=== PATIENT | female | born 1955 | race Caucasian/White ===

== ENCOUNTER 2019-02-14 06:45 | Inpatient (IN) ==
[2019-02-14] MEDS ORDERED: Clindamycin 900 MG/50 ML 900 MG/50 ML IV.SOLN IVPB ONE (07:21)
[2019-02-14] MEDS ORDERED: Ringers Solution, Lactated 1,000 ML IVC SCH (07:30)
[2019-02-14] MEDS ORDERED: Lidocaine -MPF 2% 2 ML VIAL ONE ×2 (07:38→07:42)
[2019-02-14] MEDS ORDERED: *HR* Midazolam HCl 2 MG/2 ML VIAL ONE (07:42)
[2019-02-14] MEDS ORDERED: *HR* FentaNYL (PF) 100 MCG/2 ML VIAL ONE (07:42)
[2019-02-14] MEDS ORDERED: *HR* Rocuronium Bromide 50 MG/5 ML VIAL ONE ×3 (07:42→10:18)
[2019-02-14] MEDS ORDERED: *HR* Propofol 200 MG/20 ML VIAL IVP ONE (07:42)
[2019-02-14] MEDS ORDERED: *HR* Belladonna Alkaloids/Opium 30 MG RECTAL SUPPOSITORY RC ONE (07:54)
[2019-02-14] MEDS ORDERED: *HR* Morphine Sulfate/PF 10 MG/10 ML AMPUL ONE (08:02)
[2019-02-14] MEDS ORDERED: Bupivacaine-MPF 0.25% 10 ML VIAL ONE (08:02)
[2019-02-14] MEDS ORDERED: EPHEDrine 50 MG/ML VIAL ONE (08:54)
[2019-02-14] MEDS ORDERED: Acetaminophen IV 1,000 MG/100 ML INFUS..BTL ONE (09:04)
[2019-02-14] MEDS ORDERED: Dexamethasone 4 MG/ML VIAL ONE (10:18)
[2019-02-14] MEDS ORDERED: Ondansetron 4 MG/2 ML VIAL ONE (10:18)
[2019-02-14] MEDS ORDERED: Naloxone 0.4 MG/ML INJ IVP PRN (12:13)
[2019-02-14] MEDS ORDERED: Sennosides 8.6 MG TABLET PO PRN (12:13)
[2019-02-14] MEDS: *HR* Acetaminophen w/Cod 300-30 mg 1 TAB TABLET PO PRN (14:18)
[2019-02-14] MEDS ORDERED: Dextrose Gel 15 GM/37.5 ML TUBE PO PRN ×2 (14:22)
[2019-02-14] MEDS ORDERED: *HR* Dextrose 50 % in Water (Syg) 50 ML SYRINGE IVP PRN (14:22)
[2019-02-14] MEDS ORDERED: D5% in Water 1,000 ML IVC PRN (14:22)
[2019-02-14] MEDS: Insulin LISPRO 300 UNITS/3 ML VIAL SQ SCH (16:43)
[2019-02-14] MEDS: *HR* Heparin 5,000 UNIT/ML VIAL SQ SCH (18:13)
[2019-02-14] MEDS: Ondansetron 4 MG/2 ML VIAL IVP PRN (18:18)
[2019-02-15 02:13] LABS: White Blood Count 10.1 K/mcL (4.3-11.1)
[2019-02-15 02:14] LABS: Basophils % 0.1 %; Eosinophils % 0.1 %; Hematocrit 32.9 % (35.3-44.9); Hemoglobin 11.3 g/dL (11.5-15.4); Immature Granulocytes % 4.4 % (0-4); Lymphocytes # 0.8 K/mcL (0.6-4.6); Lymphocytes % 8.1 %; Mean Corpuscular HGB Conc 34.3 g/dL (31.6-35.5); Mean Corpuscular Hemoglobin 29.7 pg (28.0-33.3); Mean Corpuscular Volume 86.4 fL (83.0-100.0); Mean Platelet Volume 9.8 fL (9.4-12.4); Monocytes # 1.4 K/mcL (0.0-1.3); Neutrophils # 7.4 K/mcL (1.6-8.9); Platelet Count 190 K/mcL (140-400); Red Blood Count 3.81 M/mcL (3.82-4.97); Segmented Neutrophils % 73.3 %
[2019-02-15 02:22] LABS: BUN/Creatinine Ratio 25 (6-26); Blood Urea Nitrogen 25 mg/dL (8-23); Carbon Dioxide 26 mEq/L (23-29); Chloride 100 mEq/L (98-107); Glucose 165 mg/dL (70-105); Osmolality,Calculated 282 (280-300); Potassium 3.8 mEq/L (3.5-5.1); Sodium 132 mEq/L (136-145); eGFR For African Americans > 60 (> 60); eGFR For Non-African Americans 56 (> 60)
[2019-02-15] MEDS ORDERED: Acetaminophen 325 MG TABLET PO PRN (05:27)
[2019-02-15] MEDS: *HR* Heparin 5,000 UNIT/ML VIAL SQ SCH ×2 (05:56→20:27)
[2019-02-15] MEDS: Insulin LISPRO 300 UNITS/3 ML VIAL SQ SCH ×3 (07:42→16:49)
[2019-02-15] MEDS ORDERED: *HR* GlipiZIDE XL (24 HR) 2.5 MG TABLET PO SCH (09:00)
[2019-02-15] MEDS: Ondansetron 4 MG/2 ML VIAL IVP PRN (10:29)
[2019-02-15] MEDS: *HR* Acetaminophen w/Cod 300-30 mg 1 TAB TABLET PO PRN ×3 (10:29→23:39)
[2019-02-15] MEDS: Ondansetron ODT 4 MG TAB.RAPDIS SL PRN ×2 (17:19→23:39)
[2019-02-15] MEDS ORDERED: Simethicone 80 MG TAB.CHEW PO PRN (20:50)
[2019-02-16] MEDS: *HR* Heparin 5,000 UNIT/ML VIAL SQ SCH (07:10)
[2019-02-16] MEDS: *HR* Acetaminophen w/Cod 300-30 mg 1 TAB TABLET PO PRN (07:10)
[2019-02-16 08:28] VITALS: BP 129/56
[2019-02-16] MEDS: Insulin LISPRO 300 UNITS/3 ML VIAL SQ SCH (09:35)
[2019-02-16] MEDS ORDERED: Ibuprofen 600 MG TABLET PO PRN (09:40)
== END 2019-02-16 10:41 | disposition home or self-care (01) | DRG 742 ==
LOC: SAMDAY 06:45 → 1NENUOBS 11:36 → SAMDAY 02-16 10:41 → 1NENUOBS 03-02 00:29
PROVIDERS: ADMIT Obstetrics & Gynecology; ATTEND Obstetrics & Gynecology